=== PATIENT | female | born 1995 | race American Indian/Alaskan Native ===

== ENCOUNTER 2018-07-03 10:49 | Outpatient (CLI) | payer OTHER | END 2018-07-03 11:24 | disposition home or self-care (01) | LOC: NST 10:49 | DX: Z34.82 Encounter for supervision of other normal pregnancy, second trimester (principal) ==

== ENCOUNTER → 2018-09-18 | Outpatient (CLI) | payer OTHER | END | disposition home or self-care (01) | LOC: NST 15:03 | DX: Z34.83 Encounter for supervision of other normal pregnancy, third trimester (principal) ==

== ENCOUNTER 2018-10-12 11:30 | Inpatient (IN) | payer OTHER ==
[~2018-10-12] VITALS: Ht 160 cm; Wt 78.0 kg
[2018-10-30] MEDS ORDERED: PRENATAL TABLE1 EACH PO (11:23)
== END 2018-11-01 12:48 | disposition home or self-care (01) | DRG 806 ==
LOC: LDR 10-30 10:17 → OB/GYN 10-30 11:30
PROVIDERS: ADMIT Obstetrics & Gynecology
PROC: 10E0XZZ Delivery of Products of Conception, External Approach (ICD-10-PCS; principal; 2018-10-30)
PROC: 0UQGXZZ Repair Vagina, External Approach (ICD-10-PCS; 2018-10-30)
PROC: 10907ZC Drainage of Amniotic Fluid, Therapeutic from Products of Conception, Via Natural or Artificial Opening (ICD-10-PCS; 2018-10-30)
PROC: 3E033VJ Introduction of Other Hormone into Peripheral Vein, Percutaneous Approach (ICD-10-PCS; 2018-10-30)
PROC: 0UQMXZZ Repair Vulva, External Approach (ICD-10-PCS; 2018-10-30)
PROC: 4A1HXCZ Monitoring of Products of Conception, Cardiac Rate, External Approach (ICD-10-PCS; 2018-10-30)
DX: O71.82 Other specified trauma to perineum and vulva (principal); O71.4 Obstetric high vaginal laceration alone; Z37.0 Single live birth; Z3A.40 40 weeks gestation of pregnancy; Z22.330 Carrier of Group B streptococcus

== ENCOUNTER 2018-10-23 13:29 | Outpatient (CLI) | payer OTHER | END 2018-10-23 14:33 | disposition home or self-care (01) | LOC: NST 13:29 | DX: Z34.83 Encounter for supervision of other normal pregnancy, third trimester (principal) ==

== ENCOUNTER 2018-10-26 08:54 | Outpatient (CLI) | payer OTHER | END 2018-10-26 09:54 | disposition home or self-care (01) | LOC: NST 08:54 | DX: Z34.83 Encounter for supervision of other normal pregnancy, third trimester (principal) ==

== ENCOUNTER 2020-05-05 11:08 | Outpatient (CLI) | payer OTHER ==
[~2020-05-05 11:08] MED LIST: PRENATAL TABLE1 EACH PO
== END 2020-05-05 12:16 | disposition home or self-care (01) ==
LOC: NST 11:08
PROVIDERS: ATTEND Obstetrics & Gynecology
DX: Z34.83 Encounter for supervision of other normal pregnancy, third trimester (principal)

== ENCOUNTER 2020-05-14 10:59 | Outpatient (CLI) | payer OTHER | END 2020-05-14 12:10 | disposition home or self-care (01) | LOC: NST 10:59 | PROVIDERS: ATTEND Obstetrics & Gynecology Maternal & Fetal Medicine | DX: Z34.83 Encounter for supervision of other normal pregnancy, third trimester (principal) ==

== ENCOUNTER 2020-06-05 15:15 | Inpatient (IN) | payer OTHER ==
[~2020-06-05] VITALS: Ht 160 cm; Wt 77.1 kg
[2020-06-17] MEDS ORDERED: ZYRTEC10 M3 PO (05:47)
== END 2020-06-19 10:44 | disposition home or self-care (01) | DRG 807 ==
LOC: LDR 06-17 05:28 → SURG-SUITE 06-17 14:10 → OB/GYN 06-22 15:15
PROVIDERS: ADMIT Obstetrics & Gynecology; ATTEND Obstetrics & Gynecology
PROC: 10E0XZZ Delivery of Products of Conception, External Approach (ICD-10-PCS; principal; 2020-06-17)
PROC: 0KQM0ZZ Repair Perineum Muscle, Open Approach (ICD-10-PCS; 2020-06-17)
PROC: 10907ZC Drainage of Amniotic Fluid, Therapeutic from Products of Conception, Via Natural or Artificial Opening (ICD-10-PCS; 2020-06-17)
PROC: 3E033VJ Introduction of Other Hormone into Peripheral Vein, Percutaneous Approach (ICD-10-PCS; 2020-06-17)
PROC: 4A1HXFZ Monitoring of Products of Conception, Cardiac Rhythm, External Approach (ICD-10-PCS; 2020-06-17)
DX: O70.1 Second degree perineal laceration during delivery (principal); Z37.0 Single live birth; Z3A.39 39 weeks gestation of pregnancy; Z20.828 Contact with and (suspected) exposure to other viral communicable diseases

== ENCOUNTER 2020-06-16 13:50 | Outpatient (CLI) | payer OTHER ==
[2020-06-17] MEDS ORDERED: ZYRTEC10 M3 PO (05:47)
== END 2020-06-16 14:59 | disposition home or self-care (01) ==
LOC: NST 13:50
PROVIDERS: ATTEND Obstetrics & Gynecology
DX: Z34.83 Encounter for supervision of other normal pregnancy, third trimester (principal)